=== PATIENT | female | born 2000 | race African-American/Black ===

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

== ENCOUNTER 2022-02-22 23:16 | Emergency (ER) | payer OTHER ==
[2022-02-23] MEDS ORDERED: Amoxicillin/Potassium Clav 875 MG TAB ONE (00:24)
== END 2022-02-23 00:31 | disposition home or self-care (01) ==
LOC: CSHERS 23:16
DX: J02.0 Streptococcal pharyngitis (principal)
CPT/HCPCS: 99283